=== PATIENT | female | born 1960 | race Caucasian/White ===

== ENCOUNTER → 2016-11-27 | Outpatient (CLI) | payer BC ==
--- NOTE | 2016-11-27 13:57 | KCIC ---
Exam:CALCANEUS LEFT Indication:Reason For Study Reason: PAIN LEFT CALCANEOUS, MID PLANTAR AREA X'S 2 WEEKS, NO INJURY / Spl. Instructions: / History: Findings: There is no fracture or dislocation. No periosteal reaction or focal bone lesion. Subtalar joint is intact. There is a dorsal calcaneal enthesophyte. Impression: Normal exam of the left calcaneus Electronically signed by: Manuel Acevedo (Nov 27, 2016 13:55:58)
== END | disposition home or self-care (01) ==
LOC: KCIC 09:53
PROVIDERS: ATTEND Nurse Practitioner Family
DX: M79.672 Pain in left foot (principal)
CPT/HCPCS: 73650

== ENCOUNTER → 2018-05-21 | Outpatient (CLI) | payer BC | END | disposition home or self-care (01) | LOC: KCIC 15:21 | DX: M47.896 Other spondylosis, lumbar region (principal); M47.898 Other spondylosis, sacral and sacrococcygeal region | CPT/HCPCS: 72100; 72220 ==

== ENCOUNTER → 2018-10-29 | Outpatient (CLI) | payer BC ==
--- NOTE | 2018-10-29 10:29 | KCIC ---
Left shoulder and wrist radiograph 10/29/2018 12:00 AM INDICATION: Chronic left shoulder pain, chronic left wrist pain COMPARISON: None available. TECHNIQUE: 3 views of the left shoulder and 3 views of the left wrist are provided. FINDINGS: Left wrist: There is no acute fracture or dislocation. Carpal bones are intact. Distal radioulnar joint is intact. There is mild joint space narrowing of the first carpometacarpal joint with subcortical sclerosis and marginal osteophytosis compatible with moderate osteoarthrosis. No significant regional soft tissue swelling. Left shoulder: There is no acute fracture or dislocation. Bone mineralization is within normal limits. Mild osteoarthrosis of the left acromioclavicular joint. Left glenohumeral joint appears maintained. Regional soft tissues are within normal limits. There is no soft tissue gas or osseous erosion. IMPRESSION: No acute fracture or dislocation involving the wrist and shoulder. Moderate osteoarthrosis the first carpometacarpal joint of the left wrist. Mild osteoarthrosis of the left acromioclavicular joint. Electronically signed by: Jennifer Ibanez MD (10/29/2018 10:25 AM) [id number]
== END | disposition home or self-care (01) ==
LOC: KCIC 09:26
PROVIDERS: ATTEND Nurse Practitioner Family
DX: M18.12 Unilateral primary osteoarthritis of first carpometacarpal joint, left hand (principal); M19.012 Primary osteoarthritis, left shoulder
CPT/HCPCS: 73030; 73110

== ENCOUNTER → 2019-11-01 | Outpatient (CLI) | payer BC ==
--- NOTE | 2019-11-02 14:06 | KCIC ---
BILATERAL SCREENING MAMMOGRAM History: Routine screening. Comparison: None. Interpreted as new baseline examination. Technique: Routine bilateral digital mammogram views were obtained. Findings: Breast Tissue Density B : There are scattered areas of fibroglandular density. There are no dominant masses, suspicious microcalcifications, or architectural distortion. IMPRESSION: No mammographic evidence of malignancy. Recommend routine screening. BI-RADS category 1: Negative. The images were reviewed with computer aided detection. Patient information is entered into the reminder system with a target due date for the next screening mammogram. Mammography is the most sensitive method for finding small breast cancers, but it does not detect them all and is not a substitute for careful clinical examination. A negative mammogram does not negate a clinically suspicious finding and should not result in delay in biopsying a clinically suspicious abnormality. "Our facility is accredited by the [employer] Mammography Program." Electronically signed by: Roberto Mckinney MD (11/02/2019 2:03 PM) [id number]
== END | disposition home or self-care (01) ==
LOC: KCIC MAMMO 14:39
PROVIDERS: ATTEND Nurse Practitioner Family
DX: Z12.31 Encounter for screening mammogram for malignant neoplasm of breast (principal)
CPT/HCPCS: 77067